=== PATIENT | female | born 1965 | race Caucasian/White ===

== ENCOUNTER 2023-07-22 10:27 | Observation (INO) ==
[2023-07-22 12:33] VITALS: BMI 27.9
[2023-07-22] MEDS ORDERED: ZOFRAN INJ 4 MG VIAL IVP PRN ×3 (12:34→18:41)
[2023-07-22] MEDS ORDERED: BENADRYL INJ 50 MG VIAL IVP PRN (12:34)
[2023-07-22] MEDS ORDERED: REGLAN INJ 10 MG VIAL IVP PRN (12:34)
[2023-07-22] MEDS ORDERED: BARHEMSYS INJ IVP PRN (12:34)
[2023-07-22] MEDS ORDERED: LR 1,000 ML IV 1,000 ML IV ONE (12:38)
[2023-07-22] MEDS ORDERED: ANCEF VIAL 1 GRAM ONE (12:38)
[2023-07-22] MEDS ORDERED: NS 100 ML IV 100 ML ONE (12:39)
[2023-07-22] MEDS ORDERED: MAGNESIUM SULFATE 50% INJ VIAL ONE (12:46)
[2023-07-22] MEDS ORDERED: DIPRIVAN VIAL 20 ML ONE (12:46)
[2023-07-22] MEDS ORDERED: BRIDION ONE (12:46)
[2023-07-22] MEDS ORDERED: ZEMURON 100 MG VIAL ONE (12:47)
[2023-07-22] MEDS ORDERED: FENTANYL VIAL INJ 100 mcg ONE (12:47)
[2023-07-22] MEDS ORDERED: ROBINUL ONE (12:47)
[2023-07-22] MEDS ORDERED: ZOFRAN INJ 4 MG VIAL ONE ×2 (12:47→14:02)
[2023-07-22] MEDS ORDERED: QUELICIN (OR ANECTINE) ONE (12:47)
[2023-07-22] MEDS ORDERED: VERSED ONE (12:47)
[2023-07-22] MEDS ORDERED: PEPCID 20 MG VIAL ONE (12:47)
[2023-07-22] MEDS ORDERED: DECADRON INJ ONE (12:47)
[2023-07-22] MEDS ORDERED: SUPRANE ONE (12:50)
--- NOTE | 2023-07-22 12:51 | DR.H&P ---
H&P History & Physical for Day of: H&P Date: 07/22/23 Chief Complaint Chief Complaint: RUQ pain Allergies Allergies Allergy/AdvReac Type Severity Reaction Status Date / Time No Known Allergies Allergy Verified 07/22/23 12:37 History of Present Illness History of Present Illness: 58 year old female who had an episode of right upper quadrant [place] 5 weeks ago. Patient was being evaluated for gallbladder disease but presented acutely to the emergency room in [place], [place] with right upper quadrant pain. CT scan consistent with acute cholecystitis and thickened gallbladder wall. Questionable sludge vs noncalcified gallstones. Liver test within normal limits. Creatinine within normal limits .Patient otherwise healthy except for history of anxiety and depression. Has never had any type of surgery. Past Medical History Past Medical History: Anxiety and Depression Past Surgical History Surgical History: Other (No previous surgeries ) Family History Family Medical History: Coronary Artery Disease Social History Does patient currently use any type of tobacco product: No Alcohol Use: None Drug Use: None Medications Home Medications: Home Medications Medication Instructions Recorded Confirmed Type alprazolam 0.5 mg tablet 0.5 mg PO PRN PRN Anxiety 07/22/23 07/22/23 History phentermine 37.5 mg tablet 37.5 mg PO QDAY 07/22/23 07/22/23 History sertraline 100 mg tablet 100 mg PO QDAY 07/22/23 07/22/23 History zolpidem 10 mg tablet 10 mg PO QPM PRN 07/22/23 07/22/23 History Labs Labs: LFTS and Creatinine WNL, Hgb= 14 WBC not elevated Review of Systems Constitutional: See HPI Eyes: No Symptoms Reported ENT: No Symptoms Reported Respiratory: No Symptoms Reported Cardiovascular: No Symptoms Reported Gastrointestinal: See HPI Genitourinary: No Symptoms Reported Musculoskeletal: No Symptoms Reported Skin: No Symptoms Reported Neurological: No Symptoms Reported Oriented: Normal, Time and Person Eyes: Normal Ear: Normal Nose: Normal Throat: Normal Respiratory: Clear Throughout Cardiovascular: Normal : Normal Auscultation: Bowel Sounds: Normal Palpation: Other (no masses palpated) Tenderness: RUQ ( mild rebound) Skin: Normal Musculoskeletal: Normal Psychiatric: Normal Mood Description: Calm Affect: Normal Speech Pattern: Clear Assessment/Plan (1) Acute cholecystitis: Status: Acute Plan: Patient has been NPO since yesterday. Procedure of laparoscopic cholecystectomy discussed with the patient including risk of bleeding and infection. Discussed small possibility of having two convert open procedure and small risk ( 1 in 1999 in my hands ) of bile duct injury. Patient and her family agreed to proceed. Review H&P Reviewed: Yes Patient was examined?: Yes
[2023-07-22] MEDS ORDERED: MARCAINE 0.5% ONE (13:30)
[2023-07-22] MEDS ORDERED: XANAX PO PRN (13:44)
--- NOTE | 2023-07-22 13:50 | OR.IMMED ---
IMMEDIATE POST-OP NOTE Immediate Post-Op Note Date of surgery/procedure: 07/22/23 Pre-Op Diagnosis: Acute cholecystitis Post-Op Diagnosis: same Description of Procedure: see dictation Surgeon/Family Mediator: Jaime Findings: acute cholecystitis with significant edema of the gallbladder wall Estimated Blood Loss: 150 cc Drains: Gadiel Jackman (# 10 flat MILEY in Maharaj's pouch) Complications: none Progress Notes: return to floor. If patient tolerates a diet and pain is controlled with po pain medications may be discharged this evening.
--- NOTE | 2023-07-22 13:58 | DR.OPNOTE ---
OP NOTE Pre-Op Diagnosis: Acute cholecystitis Post-Op Diagnosis: same Procedure Date Date Of Procedure: 07/22/23 Procedure: PROCEDURE: LAPAROSCOPIC CHOLECYSTECTOMY NARRARTIVE : The patient was taken to the operative suite and placed in the Supine position. General endotracheal anesthesia was induced. The entire abdomen prepped and draped in sterile fashion. Patient was placed in reverse Trendelenburg position and rolled to the left. Time out for the procedure obtained . Curvilinear 3cm incision made below the umbilicus in the midline and dissection carried down to the midline fascia. Medline fascia had holding sutures of 0 vicryl placed on either side of the midline. The fascia opened vertically with a 15 knife blade. The peritoneum was opened with Metzenbaum scissors and the abdominal cavity entered. Mayda cannula placed through this opening and held in position with the holding sutures. The abdomen insufflated to 15 mm of mercury with carbon dioxide. Under direct vision two 5 mm trocars placed along the right costal margin. A 5 mm trocar placed in the epigastrium. The gallbladder was identified and was consistent with acute cholecystitis with significant gallbladder wall edema. The gallbladder was grasped at the fundus an d infundibulum and dissection carried out in Calot's triangle identifying the cystic duct and cystic artery , i.e. the critical view of safety . Both were clipped proximally and distally and divided. The peritoneum of the gallbladder incised with electrocautery to remove the gallbladder from the liver bed. The gallbladder removed through the infra umbilical port. The Mayda cannula was replaced. Abdomen irrigated and suctioned free. Hemostasis obtained with electrocautery where necessary. Surgicel placed in the liver bed where the gallbladder has been removed. A flat number 10 Gadiel-Jackman drain was placed in Maharaj's pouch and brought out through the right lateral most trocar site and secured to the skin with a 2-0 silk suture. All trocars removed. The fascia of the initial incision closed with interrupted 0 Vicryl sutures . All laparoscopic incisions then closed with 3-0 Vicryl sutures in the subcutaneous tissue in interrupted fashion. The skin closed with steri-strips Each incision was injected with 0.5% Marcaine. The patient was extubated and taken to PACU in good condition . Type of Anesthesia: General Anesthetic w/ETT Findings: acute cholecystitis with very edematous gallbladder wall Specimen/Pathology: gallbladder Type of Fluids Used:: Lactated Ringers Total Amount of Fluid Infused:: 750 cc EBL: 150 cc Drains/Tubes Placed: Gadiel Jackman (number 10 flat Gadiel Jackman drain in Maharaj's pouch ) Complications:: none Needle/Sponge Count:: correct she'd already been Disposition/Condition: Pt. tolerated procedure without difficulty. Extubated in the OR and taken to PACU in stable condition.
[2023-07-22] MEDS ORDERED: DILAUDID INJ ONE (14:09)
[2023-07-22] MEDS: DILAUDID INJ IVP PRN ×2 (14:10→14:15)
[2023-07-22] MEDS ORDERED: ZOLOFT ONE (14:46)
[2023-07-22] MEDS: ZOLOFT PO SCH ×2 (14:47→14:58)
[2023-07-22] MEDS: LR 1,000 ML IV 1,000 ML IV SCH ×3 (14:48→23:13)
[2023-07-22] MEDS ORDERED: PHENERGAN INJ 25 MG IM ONE (18:40)
[2023-07-22] MEDS: PERCOCET TAB 5/325 MG PO PRN (19:15)
[2023-07-22] MEDS: CIPRO TAB 500 MG PO SCH (20:21)
--- NOTE | 2023-07-22 23:50 | NOTE.SOAP ---
Soap Note Note for Day of Date of Exam: 07/22/23 Subjective Data Subjective Data: s/p laparoscopic cholecystectomy for acute cholecystitis. Patient had wanted to go home this PM after surgery but has had persistent nausea. Objective Data Temperature: 97.8 F Pulse Rate: 99 Respiratory Rate: 20 Blood Pressure: 118/62 Objective Data: MILEY drain with minimal post op drainage. Mild incisional tenderness. Assessment Assessment: s/p laparoscopic cholecystectomy Plan Plan: continue to treat nausea, obtain AM labs
[2023-07-22 23:54] VITALS: O2SAT 94
[2023-07-23] MEDS: PERCOCET TAB 5/325 MG PO PRN ×2 (02:37→08:18)
[2023-07-23 05:16] LABS: BASOPHILS % (AUTO) 0.3 % (0.2-1.0); EOSINOPHILS % (AUTO) 0.1 % (0.9-2.9); HEMATOCRIT 34.9 % (36.0-47.0); LYMPHOCYTES % (AUTO) 8.6 % (21.0-51.0); MEAN CORPUSCULAR HEMOGLOBIN 29.6 pg (27.0-34.0); MEAN CORPUSCULAR HGB CONC 34.2 g/dL (33.0-35.0); MEAN CORPUSCULAR VOLUME 86.4 fL (80.0-100.0); MEAN PLATELET VOLUME 8.5 fL (7.4-11.0); MONOCYTES % (AUTO) 8.1 % (0.0-13.0); NEUTROPHILS # (AUTO) 9.8 x10^3/uL (2.2-4.8); NEUTROPHILS % (AUTO) 82.9 % (42.0-75.0); PLATELET COUNT 206 X10^3/uL (150.0-450.0); RED BLOOD COUNT 4.04 X10^6/uL (3.5-5.4); RED CELL DISTRIBUTION WIDTH 13.1 % (11.6-16.5); WHITE BLOOD COUNT 11.9 X10^3/uL (3.6-10.0)
[2023-07-23 05:25] LABS: ALANINE AMINOTRANSFERASE 280 Units/L (12-78); ALBUMIN 3.1 g/dL (3.4-5.0); ALKALINE PHOSPHATASE 114 Units/L (46-116); ASPARTATE AMINO TRANSFERASE 237 Units/L (15-37); BLOOD UREA NITROGEN 12 mg/dL (7-18); CALCIUM 8.2 mg/dL (8.5-10.1); CARBON DIOXIDE 29.7 mmol/L (21-32); CHLORIDE 103 mmol/L (98-107); COR CA(FOR HYPOALB) 8.9 mg/dL (8.5-10.1); COR NA(FOR HYPERGLY) 138 mmol/L (136-145); CREATININE 0.86 mg/dL (0.55-1.02); GLUCOSE 117 mg/dL (65-99); POTASSIUM 3.9 mmol/L (3.5-5.1); SODIUM 138 mmol/L (136-145); TOTAL PROTEIN 5.9 g/dL (6.4-8.2); eGFR NON BLACK RACES > 60 (>60)
[2023-07-23] MEDS: LR 1,000 ML IV 1,000 ML IV SCH (05:36)
[2023-07-23] MEDS ORDERED: ZOLOFT ONE (07:16)
[2023-07-23 08:12] VITALS: BP 100/50; PULSE 86; TEMP 98.4
[2023-07-23] MEDS: ZOLOFT PO SCH (08:12)
[2023-07-23] MEDS: CIPRO TAB 500 MG PO SCH (08:12)
[2023-07-23 09:22] VITALS: RESP 19
--- NOTE | 2023-07-23 10:43 | W.DIS.FURT ---
Summary of Discharge Discharge Summary of Date Date of Exam: 07/23/23 Admission Date Date of Admission: 07/22/23 Admission Diagnosis Hospital Course: 58 year old female who had an episode of right upper quadrant pain prior to this admission which was being evaluated. She presented with acute right upper quadrant pain and CT scan done at [facility] was consistent with acute cholecystitis. She was transferred to [facility]. She is otherwise a healthy patient. She underwent an uncomplicated laparoscopic cholecystectomy for severe acute cholecystitis. Post-procedure she had some nausea which is now resolved and she is tolerating a diet. She will be discharged home with a Gadiel Jackman drain in place and she and her family will be instructed on how to care for the drain. She will follow up with me in one w [place]. She will be on her usual medications Plus ciprofloxacin 500 mg BID x 1 week and will be given Percocet 5 mg tablets, one every 6 hours PRN pain Vital Signs: Vital Signs (72 hours) 07/22/23 23:50 07/22/23 12:14 07/22/23 13:02 Temperature 97.8 F 97.1 F L Pulse Rate 99 H 74 Pulse Rate [Left Brachial] Respiratory Rate 20 18 Blood Pressure 118/62 130/73 Blood Pressure [Left Arm] O2 Sat by Pulse Oximetry 96 Oxygen Delivery Method Room Air Room Air 07/22/23 13:48 07/22/23 13:53 07/22/23 13:58 Temperature 97.6 F Pulse Rate 110 H 101 H 101 H Pulse Rate [Left Brachial] Respiratory Rate 15 16 16 Blood Pressure 127/69 125/66 119/59 Blood Pressure [Left Arm] O2 Sat by Pulse Oximetry 96 99 99 Oxygen Delivery Method Nasal Cannula Nasal Cannula Nasal Cannula 07/22/23 14:03 07/22/23 14:08 07/22/23 14:10 Temperature Pulse Rate 95 H 93 H Pulse Rate [Left Brachial] Respiratory Rate 17 17 17 Blood Pressure 107/58 115/56 Blood Pressure [Left Arm] O2 Sat by Pulse Oximetry 100 100 Oxygen Delivery Method Nasal Cannula Nasal Cannula 07/22/23 14:13 07/22/23 14:18 07/22/23 14:15 Temperature Pulse Rate 95 H 92 H Pulse Rate [Left Brachial] Respiratory Rate 16 16 16 Blood Pressure 115/60 111/55 Blood Pressure [Left Arm] O2 Sat by Pulse Oximetry 100 98 Oxygen Delivery Method Nasal Cannula Nasal Cannula 07/22/23 15:03 07/22/23 16:03 07/22/23 17:03 Temperature 97.5 F L Pulse Rate Pulse Rate [Left Brachial] 71 78 94 H Respiratory Rate 17 18 18 Blood Pressure Blood Pressure [Left Arm] 146/75 129/60 115/56 O2 Sat by Pulse Oximetry 94 L 98 95 Oxygen Delivery Method Room Air Room Air Room Air 07/22/23 18:20 07/22/23 18:55 07/22/23 18:55 Temperature 98.0 F Pulse Rate Pulse Rate [Left Brachial] 89 Respiratory Rate 18 18 18 Blood Pressure Blood Pressure [Left Arm] 116/64 O2 Sat by Pulse Oximetry 96 Oxygen Delivery Method Room Air 07/22/23 19:15 07/22/23 19:00 07/22/23 20:00 Temperature 97.8 F Pulse Rate Pulse Rate [Left Brachial] 99 H Respiratory Rate 20 20 Blood Pressure Blood Pressure [Left Arm] 118/62 O2 Sat by Pulse Oximetry 95 Oxygen Delivery Method Room Air 07/22/23 20:15 07/22/23 23:53 07/23/23 02:37 Temperature 98.0 F Pulse Rate Pulse Rate [Left Brachial] 89 Respiratory Rate 18 20 19 Blood Pressure Blood Pressure [Left Arm] 108/53 O2 Sat by Pulse Oximetry 94 L Oxygen Delivery Method 07/23/23 03:37 07/23/23 03:46 07/23/23 07:00 Temperature 97.8 F Pulse Rate Pulse Rate [Left Brachial] 76 Respiratory Rate 19 19 Blood Pressure Blood Pressure [Left Arm] 108/53 O2 Sat by Pulse Oximetry 94 L Oxygen Delivery Method Room Air 07/23/23 08:00 07/23/23 08:18 07/23/23 09:18 Temperature 98.4 F Pulse Rate Pulse Rate [Left Brachial] 86 Respiratory Rate 18 18 19 Blood Pressure Blood Pressure [Left Arm] 100/50 O2 Sat by Pulse Oximetry 94 L Oxygen Delivery Method Labs: Laboratory Last Values WBC 11.9 X10^3/uL (3.6-10.0) H 07/23/23 04:30 RBC 4.04 X10^6/uL (3.5-5.4) 07/23/23 04:30 Hgb 12.0 g/dL (12.0-16.0) 07/23/23 04:30 Hct 34.9 % (36.0-47.0) L 07/23/23 04:30 MCV 86.4 fL (80.0-100.0) 07/23/23 04:30 MCH 29.6 pg (27.0-34.0) 07/23/23 04:30 MCHC 34.2 g/dL (33.0-35.0) 07/23/23 04:30 RDW 13.1 % (11.6-16.5) 07/23/23 04:30 Plt Count 206 X10^3/uL (150.0-450.0) 07/23/23 04:30 MPV 8.5 fL (7.4-11.0) 07/23/23 04:30 Neut % (Auto) 82.9 % (42.0-75.0) H 07/23/23 04:30 Lymph % (Auto) 8.6 % (21.0-51.0) L 07/23/23 04:30 Kane % (Auto) 8.1 % (0.0-13.0) 07/23/23 04:30 Eos % (Auto) 0.1 % (0.9-2.9) L 07/23/23 04:30 Baso % (Auto) 0.3 % (0.2-1.0) 07/23/23 04:30 Neut # (Auto) 9.8 x10^3/uL (2.2-4.8) H 07/23/23 04:30 Lymph # (Auto) 1.0 X10^3/uL (1.3-2.9) L 07/23/23 04:30 Kane # (Auto) 1.0 x10^3/uL (0.3-0.8) H 07/23/23 04:30 Eos # (Auto) 0.0 x10^3/uL (0.0-0.2) 07/23/23 04:30 Baso # (Auto) 0.0 X10^3/uL (0.0-0.1) 07/23/23 04:30 Absolute Nucleated RBC 0.0 /100WBC 07/23/23 04:30 Sodium 138 mmol/L (136-145) 07/23/23 04:30 Corrected Sodium 138 mmol/L (136-145) 07/23/23 04:30 Potassium 3.9 mmol/L (3.5-5.1) 07/23/23 04:30 Chloride 103 mmol/L (98-107) 07/23/23 04:30 Carbon Dioxide 29.7 mmol/L (21-32) 07/23/23 04:30 BUN 12 mg/dL (7-18) 07/23/23 04:30 Creatinine 0.86 mg/dL (0.55-1.02) 07/23/23 04:30 Est GFR (MDRD) Af Amer > 60 (>60) 07/23/23 04:30 Est GFR (MDRD) Non-Af > 60 (>60) 07/23/23 04:30 Glucose 117 mg/dL (65-99) H 07/23/23 04:30 Calcium 8.2 mg/dL (8.5-10.1) L 07/23/23 04:30 Corrected Calcium 8.9 mg/dL (8.5-10.1) 07/23/23 04:30 Total Bilirubin 0.50 mg/dL (0.2-1.0) 07/23/23 04:30 AST 237 Units/L (15-37) H 07/23/23 04:30 ALT 280 Units/L (12-78) H 07/23/23 04:30 Alkaline Phosphatase 114 Units/L (46-116) 07/23/23 04:30 Total Protein 5.9 g/dL (6.4-8.2) L 07/23/23 04:30 Albumin 3.1 g/dL (3.4-5.0) L 07/23/23 04:30 Globulin 2.8 g/dL (2.5-4.5) 07/23/23 04:30 Albumin/Globulin Ratio 1.1 Ratio (1.1-2.1) 07/23/23 04:30 Reason For Visit: CHOLELITHASIS Discharge Date Discharge Date: 07/23/23 Discharge Diagnosis All Active Problems (Updated 07/22/23 @ 12:49 by Esvin Sandoval) Acute cholecystitis (Acute) Plan of Treatment: Continue with present treatment and follow up plan. Pt is to keep follow up appointment as instructed and take medications as ordered. Discharge Medications Discharge Medications: No Known Allergies Allergy (Verified 07/22/23 12:37) CONTINUE taking the following medications alprazolam 0.5 mg tablet 0.5 mg PO PRN PRN Anxiety 07/22/23 [History] phentermine 37.5 mg tablet 37.5 mg PO QDAY 07/22/23 [History] sertraline 100 mg tablet 100 mg PO QDAY 07/22/23 [History] zolpidem 10 mg tablet 10 mg PO QPM PRN 07/22/23 [History] New Prescriptions ciprofloxacin HCl 500 mg tablet 500 mg PO BID #14 tabs 07/22/23 [Rx] oxycodone-acetaminophen 5 mg-325 mg tablet 1 tab PO Q6H PRN #20 tabs 07/22/23 [Rx] Discharge Disposition Assessment: see hospital course Discharge Plan Discharge Plan Hospital Course: 58 year old female who had an episode of right upper quadrant pain prior to admission which was being evaluated. She presented with acute right upper quadrant pain and CT scan done at [facility] was consistent with acute cholecystitis. She was transferred to [facility]. She is otherwise a healthy patient. She underwent an uncomplicated laparoscopic cholecystectomy for severe acute cholecystitis. Post-procedure she had some nausea which is now resolved and she is tolerating a diet. She will be discharged home with a Gadiel Jackman drain in place and she and her family will be instructed on how to care for the drain. She will follow up with me in one week. She will be on her usual medications Plus ciprofloxacin 500 mg BID x 1 week and will be given Percocet 5 mg tablets, one every 6 hours PRN pain Patient Disposition: HOME, SELF-CARE Condition: Stable Health Concerns: Post Hospitalization: new medications and changes needed to prevent readmission or further decline. Pt educated and given instructions on all concerns. Care Plan Goals: care for drain, f/u this coming Tuesday. Plan of Treatment: Continue with present treatment and follow up plan. Pt is to keep follow up appointment as instructed and take medications as ordered. Assessment: see hospital course Prescription drug monitoring program results: PDMP reviewed and no concerns identified Prescriptions: New ciprofloxacin HCl 500 mg Tablet 500 mg PO BID Qty: 14 0RF oxycodone-acetaminophen 5-325 mg Tablet 1 tab PO Q6H MDD 4 PRNQty: 20 0RF Continued sertraline 100 mg tablet 100 mg PO QDAY phentermine 37.5 mg tablet 37.5 mg PO QDAY alprazolam 0.5 mg tablet 0.5 mg PO PRN PRN (Reason: Anxiety) zolpidem 10 mg tablet 10 mg PO QPM PRN Orders to Discharge Patient Discharge Orders: Discharge (Routine); Ordered 07/23/23 Ordered By: Esvin Sandoval Follow ups/Referrals Follow ups/Referrals: Jeffry Copeland [Primary Care Provider] - 1 WEEK Instructions Instructions: Laparoscopic Cholecystectomy, Care After, Eating Plan for Dumping Syndrome, Minimally Invasive Cholecystectomy, Care After, [id number], Dumping Syndrome, Surgical Drain Home Care Stand Alone Forms: Excuse From Work or School, Post Hospital Follow Up Care
== END 2023-07-23 10:45 | disposition home or self-care (01) ==
LOC: MED/SURG 11:32 → INTOOBSV 11:37
PROVIDERS: ADMIT Surgery; ATTEND Surgery
DX: R10.11 Right upper quadrant pain; K81.0 Acute cholecystitis; R79.89 Other specified abnormal findings of blood chemistry